=== PATIENT | male | born 1945 | race Caucasian/White ===

== ENCOUNTER → 2017-10-05 | Outpatient (CLI) | payer OTHER ==
[~2017-10-05] VITALS: Ht 175.3 cm; Wt 76.9 kg
[~2017-10-05] MED LIST: ASPIRIN325 PO; AUGMENTIN 875-1 EACH PO; CLOPIDOGREL75 MG PO; COZAAR 50 MG TA50 M2 PO; HYDROCHLOROTHIA25 M2 PO; LIPITOR 20 MG T20 M1 PO; LISINOPRIL5 MG PO; LOPRESSOR25 PO; MOBIC15 MG PO; TRAMADOL 50 MG50 MG PO
--- NOTE | ~2017-10-05 | EKG ---
[place] [address] [facility] [employer] [address] ELECTROCARDIOGRAM REPORT Name: HAYAN [facility] [id number] Admission: 10/05/17 Attend Phys: Jonathan Glasgow MD Discharge: Date of : 47 Report #: [id number] THIS REPORT FOR: //name// [facility] Test Date: 2017-10-05 Test Time: 11:26:03 Pat Name: YAN BONNER Department: Room: Gender: Research Engineer [employer]: [place] : 1945 Requested By: Jonathan Glasgow Order Number: [id number] MD: Robe Cavanaugh Measurements Intervals [place] Rate: 84 P: 65 [place]: 172 QRS: 51 QRSD: 97 T: 27 QT: 424 QTc: 502 Interpretive Statements Sinus rhythm Ventricular bigeminy Compared to ECG 02/02/2017 07:21:23 No significant changes Electronically Signed On 10-05-2017 15:38:13 CDT by Robe Cavanaugh [email or web address] <ELECTRONICALLY SIGNED> By: Robe Cavanaugh MD, [facility] 10/05/17 1538 [id number] Robe Cavanaugh MD, FACC /EPI
--- NOTE | ~2017-10-05 | CATHLAB ---
[facility] [address] [place] [address] INVASIVE PROCEDURE REPORT Name: YAN BONNER [facility]: [facility] [id number] Admission: 10/05/17 Attend Phys: Jonathan Glasgow MD Discharge: Date of : 47 Date of Service: 10/05/17 1646 Report #: [id number] THIS REPORT FOR: //name// APPROVED REPORT Study performed: 10/05/2017 12:55:16 Patient Details Patient Status: Out-Patient Room #: The patient is a 71 year-old male Event Personnel Jonathan Glasgow Director Of Corporate Real Estate, Alessio Snowden RN, Randolph Russo RN RN, Vineet Devi Greenwood, Christine RTR Monitor Procedures Performed Left Heart Cath w/or w/o Coronaries [id number] [facility] Indication Chest pain Risk Factors Hypercholesterolemia, Coronary Artery DiseaseHypertension Previous Procedures/Diagnoses Previous PCI, Previous ND Procedure Narrative The was infiltrated with 1% Lidocaine subcutaneous anesthesia. A PINNACLE 4FR Sheath #[id number] sheath was inserted into the RFA^. Coronary angiography was performed using coronary diagnostic catheters. The right coronary system was accessed and visualized with a JR4 catheter. The left coronary system was accessed and visualized with a JL4 catheter. The left ventricle was accessed and visualized with a PIGTAIL catheter. Left ventricular/Aortic Valve gradient assessed via catheter pullback. Left ventriculogram was performed in 30 degree projection. Hemostasis was obtained with manual pressure following sheath removal without any complications. The patient tolerated the procedure well and there were no complications associated with the procedure. There was no hematoma. Intraoperative Conscious Sedation Sedation start time: 13.45 Case end Time: 14.20 [facility] [address] [place] [address] INVASIVE PROCEDURE REPORT Name: YAN BONNER Room #: REG [facility]#: [id number] Admission: 10/05/17 Attend Phys: Jonathan Glasgow MD Discharge: Date of : 47 Date of Service: 10/05/17 1646 Report #: [id number] Fentanyl 50 mcg Versed 1.5 mg Fluoro Time: 2.16 minutes Dose: DAP 3622.50 cGycm2 482 mGy Contrast Type and Amount: Omnipaque 160 ml Coronary Angiography The patient's coronary anatomy is right dominant. Diagnostic Cath Left Main Patent vessel with mild disease. LAD There is a mild to moderate stenosis in the proximal segment, 40%. There is mild calcifications in both the proximal and mid segments. The mid and distal segments of the LAD are patent with no flow-limiting lesions. Diagonal 1 Small-caliber vessel. Circumflex Mild to moderate stenosis in the proximal segment, 40%. Supplies a small OM1 vessel. Right Coronary Dominant vessel, supplies a PDA and several posterior lateral branches. There is a stent in the mid segment, patent with mild restenosis. Just after the stent, there is a moderate stenosis of 40% with calcification. R PDA Patent vessel, with no flow-limiting lesions. RPLV Patent vessel, with no flow-limiting lesions. Left Ventriculography The left ventricle is normal in size with normal contractility. The left ventricular ejection fraction is estimated to be 55-60%. Hemodynamics The aortic pressure is 130/76 mmHg with a mean of 94 mmHg. The left ventricular pressure is 130/13 mmHg with a mean of mmHg. The left ventricular end diastolic pressure is 24 mmHg. Conclusion 1. Patent stent in the mid RCA. 2. Mild to moderate disease in the LAD, left circumflex and mid RCA. 3. Normal LV systolic function. 4. Recommend medical therapy. <ELECTRONICALLY SIGNED> By: Jonathan Glasgow MD 10/05/17 1646 45 164 Jonathan Glasgow MD /INF
[2017-10-05 11:19] VITALS: BP 114/72
[2017-10-05 11:34] LABS: HEMATOCRIT 41.4 % (42.0-52.0); HEMOGLOBIN 14.1 gm/dL (14.0-18.0); MCH 32.9 pg (26.0-34.0); MCHC 34.1 g/dL (28.0-37.0); MCV 96.5 fL (80.0-100.0); RBC 4.29 mil/uL (4.50-6.00); RDW 13.6 % (10.5-14.5); WBC 5.5 thou/uL (4.0-11.0)
[2017-10-05 11:37] LABS: CALCIUM 8.8 mg/dL (8.5-10.1); CREATININE 1.1 mg/dL (0.7-1.3); POTASSIUM 3.6 mmol/L (3.5-5.1)
== END | disposition home or self-care (01) ==
LOC: CATH 10:55
PROVIDERS: Internal Medicine Cardiovascular Disease
DX: I25.10 Atherosclerotic heart disease of native coronary artery without angina pectoris (principal); I10 Essential (primary) hypertension; M10.9 Gout, unspecified; E78.5 Hyperlipidemia, unspecified; K21.9 Gastro-esophageal reflux disease without esophagitis; I25.2 Old myocardial infarction; I34.0 Nonrheumatic mitral (valve) insufficiency; Z95.5 Presence of coronary angioplasty implant and graft; Z87.891 Personal history of nicotine dependence; Z79.899 Other long term (current) drug therapy; Z98.890 Other specified postprocedural states; Z79.82 Long term (current) use of aspirin; Z88.8 Allergy status to other drugs, medicaments and biological substances

== ENCOUNTER → 2019-06-03 | Outpatient (CLI) | payer OTHER | LOC: SJCVCIMAG 07:27 | DX: R00.0 Tachycardia, unspecified (principal); I25.10 Atherosclerotic heart disease of native coronary artery without angina pectoris; I65.21 Occlusion and stenosis of right carotid artery; I10 Essential (primary) hypertension; E78.5 Hyperlipidemia, unspecified; Z87.891 Personal history of nicotine dependence; Z79.899 Other long term (current) drug therapy; Z95.828 Presence of other vascular implants and grafts ==

== ENCOUNTER → 2019-12-06 | Outpatient (CLI) | payer OTHER | LOC: SJCVC 13:12 | PROVIDERS: ATTEND Internal Medicine Cardiovascular Disease | DX: I25.10 Atherosclerotic heart disease of native coronary artery without angina pectoris (principal); I10 Essential (primary) hypertension; E78.00 Pure hypercholesterolemia, unspecified; R60.9 Edema, unspecified; K21.9 Gastro-esophageal reflux disease without esophagitis; I25.2 Old myocardial infarction; Z87.891 Personal history of nicotine dependence; Z79.82 Long term (current) use of aspirin; Z79.899 Other long term (current) drug therapy ==

== ENCOUNTER → 2020-06-05 | Outpatient (CLI) | payer OTHER | LOC: SJCVC 10:28 | PROVIDERS: ATTEND Internal Medicine Cardiovascular Disease | DX: R00.1 Bradycardia, unspecified (principal); I10 Essential (primary) hypertension; I25.10 Atherosclerotic heart disease of native coronary artery without angina pectoris; E78.00 Pure hypercholesterolemia, unspecified; R60.9 Edema, unspecified; R60.0 Localized edema; K21.9 Gastro-esophageal reflux disease without esophagitis; I25.2 Old myocardial infarction; Z79.82 Long term (current) use of aspirin; Z79.899 Other long term (current) drug therapy; Z87.891 Personal history of nicotine dependence; Z72.89 Other problems related to lifestyle; Z88.8 Allergy status to other drugs, medicaments and biological substances ==

== ENCOUNTER → 2020-12-11 | Outpatient (CLI) | payer OTHER | LOC: SJCVCIMAG 10:11 | PROVIDERS: ATTEND Internal Medicine Cardiovascular Disease | DX: I08.0 Rheumatic disorders of both mitral and aortic valves (principal); R00.1 Bradycardia, unspecified; I25.10 Atherosclerotic heart disease of native coronary artery without angina pectoris; I10 Essential (primary) hypertension; E78.00 Pure hypercholesterolemia, unspecified; R60.9 Edema, unspecified; K21.9 Gastro-esophageal reflux disease without esophagitis; Z79.82 Long term (current) use of aspirin; Z79.899 Other long term (current) drug therapy ==